=== PATIENT | female | born 1965 | race Caucasian/White ===

== ENCOUNTER → 2016-12-11 | Outpatient (CLI) | payer OTHER | END | disposition home or self-care (01) | LOC: CFH 07:28 | PROVIDERS: ATTEND Nurse Practitioner Family | DX: N64.89 Other specified disorders of breast (principal) | CPT/HCPCS: 76641; G0206 ==

== ENCOUNTER 2016-12-18 17:53 | Emergency (ER) | payer OTHER ==
[~2016-12-18] VITALS: Ht 162.6 cm; Wt 79.0 kg
[2016-12-18 17:59] VITALS: BP 128/91
[2016-12-18] MEDS ORDERED: KETOROLAC 30 MG/1 ML IM ONE (19:30)
[2016-12-18] MEDS ORDERED: CYCLOBENZAPRINE 10 MG TABLET PO ONE (19:30)
[2016-12-18] MEDS ORDERED: HYDROcodone/APAP 5/325 TABLET PO ONE (19:30)
[2016-12-18] MEDS ORDERED: ONDANSETRON ODT 4 MG PO ONE (19:30)
[2016-12-18] MEDS ORDERED: KETOROLAC 30 MG/1 ML ONE (19:39)
[2016-12-18] MEDS ORDERED: ONDANSETRON ODT 4 MG ONE (19:39)
[2016-12-18] MEDS ORDERED: CYCLOBENZAPRINE 10 MG TABLET ONE (19:39)
[2016-12-18] MEDS ORDERED: HYDROcodone/APAP 5/325 TABLET ONE (19:39)
== END 2016-12-18 20:49 | disposition home or self-care (01) ==
LOC: ED 20:43
DX: S33.5XXA Sprain of ligaments of lumbar spine, initial encounter (principal); S23.3XXA Sprain of ligaments of thoracic spine, initial encounter; S13.9XXA Sprain of joints and ligaments of unspecified parts of neck, initial encounter; V59.49XA Driver of pick-up truck or van injured in collision with other motor vehicles in traffic accident, initial encounter; Y93.89 Activity, other specified; Y99.8 Other external cause status; Y92.488 Other paved roadways as the place of occurrence of the external cause
CPT/HCPCS: 72072; 72110; 72125; 96372; 99284; J1885; Q0162

== ENCOUNTER → 2017-08-07 | Outpatient (CLI) | payer OTHER | END | disposition home or self-care (01) | LOC: CFH 12:59 | PROVIDERS: ATTEND Nurse Practitioner Family | DX: J44.1 Chronic obstructive pulmonary disease with (acute) exacerbation (principal) | CPT/HCPCS: 71020 ==

== ENCOUNTER → 2018-01-23 | Outpatient (CLI) | payer OTHER | END | disposition home or self-care (01) | LOC: PETCFH 08:53 | PROVIDERS: ATTEND Nurse Practitioner Family | DX: E21.3 Hyperparathyroidism, unspecified (principal) | CPT/HCPCS: 78070; A9500 ==

== ENCOUNTER → 2018-04-16 | Outpatient (CLI) | payer OTHER | END | disposition home or self-care (01) | LOC: CFH 12:14 | PROVIDERS: ATTEND Nurse Practitioner Family | DX: R04.2 Hemoptysis (principal); J44.9 Chronic obstructive pulmonary disease, unspecified | CPT/HCPCS: 71046 ==

== ENCOUNTER → 2018-04-25 | Outpatient (CLI) | payer OTHER | END | disposition home or self-care (01) | LOC: CFH 09:28 | PROVIDERS: ATTEND Nurse Practitioner Family | DX: Z12.31 Encounter for screening mammogram for malignant neoplasm of breast (principal); Z88.2 Allergy status to sulfonamides; F17.210 Nicotine dependence, cigarettes, uncomplicated | CPT/HCPCS: 77067 ==